=== PATIENT | male | born 1935 | race Caucasian/White ===

== ENCOUNTER → 2019-08-12 | Outpatient (CLI) | payer MEDICARE ==
[~2019-08-12] MED LIST: ASPI81CH PO; ASPI81EC PO; ATOR20 PO; DOCU100 PO; FISH1000 PO; Flomax0.4 MG PO; LISHYD2025 PO; MATURE MULTI VITAMIN PO; Multiple Vitam1 EAC1 PO; TAMS.4ER PO; TUMS500 MG PO
== END | disposition home or self-care (01) ==
LOC: LAB SHORT 12:18 → PLD 12:18
DX: D48.5 Neoplasm of uncertain behavior of skin (principal)
CPT/HCPCS: 88305